=== PATIENT | male | born 1965 | race Caucasian/White ===

== ENCOUNTER 2020-07-05 23:14 | Emergency (ER) | payer OTHER ==
[2020-07-05] MEDS ORDERED: HYDROmorphone 2 MG/ML VIAL (DILAUDID) IV ONE (23:45)
[2020-07-05] MEDS ORDERED: ONDANSETRON 4 MG/2 ML (SDV) Z0FRAN IVP ONE (23:45)
[2020-07-06 00:24] LABS: HEMATOCRIT 49 % (40-54); HEMOGLOBIN 16.8 G/DL (13.3-17.7); LYMPHOCYTES % (AUTO) 12 % (12-44); MEAN CORPUSCULAR HEMOGLOBIN 29 PG (25-34); MEAN CORPUSCULAR HGB CONC 34 G/DL (32-36); MEAN CORPUSCULAR VOLUME 87 FL (80-99); MEAN PLATELET VOLUME 9.2 FL (7.4-10.4); NEUTROPHILS % (AUTO) 72 % (42-75); PLATELET COUNT 340 10^3/uL (130-400); WHITE BLOOD COUNT 16.7 10^3/uL (4.3-11.0)
[2020-07-06 00:25] LABS: BASOPHILS # (AUTO) 0.1 10^3/uL (0.0-0.1); BASOPHILS % (AUTO) 1 % (0-10); EOSINOPHILS # (AUTO) 1.5 10^3/uL (0.0-0.3); EOSINOPHILS % (AUTO) 9 % (0-10); MONOCYTES # (AUTO) 0.9 X 10^3 (0.0-1.0); MONOCYTES % (AUTO) 5 % (0-12); NEUTROPHILS # (AUTO) 12.1 X 10^3 (1.8-7.8)
[2020-07-06 00:27] LABS: NEUTROPHILS % (MANUAL) 72 %
[2020-07-06 00:28] LABS: EOSINOPHILS % (MANUAL) 9 %; LYMPHOCYTES % (MANUAL) 11 %; MONOCYTES % (MANUAL) 8 %; PLATELET ESTIMATE ADEQUATE; RBC MORPH NORMAL
[2020-07-06 00:29] LABS: TOXIC GRANULATION/VACUOLAZATIO 1+
[2020-07-06 00:31] LABS: CARBON DIOXIDE 27 MMOL/L (21-32); CHLORIDE 100 MMOL/L (98-107); POTASSIUM 4.3 MMOL/L (3.6-5.0); SODIUM 137 MMOL/L (135-145)
[2020-07-06 00:32] LABS: ALANINE AMINOTRANSFERASE 44 U/L (0-55); ALBUMIN 4.4 GM/DL (3.2-4.5); ALKALINE PHOSPHATASE 80 U/L (40-136); BILIRUBIN,TOTAL 0.3 MG/DL (0.1-1.0); BUN/CREATININE RATIO 11; CALCIUM 9.2 MG/DL (8.5-10.1); CREATININE SERUM 1.01 MG/DL (0.60-1.30); GFR ESTIMATED > 60; GLUCOSE 103 MG/DL (70-105); LIPASE 150 U/L (8-78)
[2020-07-06] MEDS ORDERED: NS IV 1000 ML 1,000 ML IV SCH (01:00)
[2020-07-06] MEDS ORDERED: NS 100 ML (IVPB) BAG IV ONE (01:00)
[2020-07-06] MEDS ORDERED: IOHEXOL 350 MG/ML 100 ML (OMNIPAQUE 350) VIAL IV ONE (01:00)
[2020-07-06] MEDS ORDERED: CATHETER FLUSH 10 ML SYR IV PRN (01:00)
[2020-07-06] MEDS ORDERED: HYDROmorphone 2 MG/ML VIAL (DILAUDID) IV ONE (01:00)
[2020-07-06] MEDS ORDERED: HOLD METFORMIN - RECEIVED CONTRAST 20 ML VIAL IV SCH (01:00)
--- NOTE | 2020-07-06 01:01 | ED Abdominal Pain ---
General Chief Complaint: Abdominal/GI Problems Stated Complaint: ABDOMINAL PAQIN Nursing Triage Note: Pt complaining of abd pain that started monday Sepsis Screen: No Definite Risk Source of Information: Patient History of Present Illness Date Seen by Provider: Jul 05, 2020 Time Seen by Provider: 23:52 Timing/Duration: 1-3 Hours ("About 3 hours") Severity/Quality: Severe Location: RLQ, Periumbilical Radiation: No Radiation Activities at Onset: None Modifying Factors: Improves With Palpation (worse w/ palpation RLQ) Associated Symptoms: No Back Pain, No Chest Pain, No Diaphoresis, No Fever/Chills; Other (nausea w/o vomiting) Allergies and Home Medications Allergies Coded Allergies: ciprofloxacin (Verified Allergy, Unknown, 07/05/20) Patient Home Medication List Home Medication List Reviewed: Yes Review of Systems Review of Systems Constitutional: see HPI; No chills, No diaphoresis, No fever EENTM: No Symptoms Reported Respiratory: No Symptoms Reported Cardiovascular: No Symptoms Reported Gastrointestinal: See HPI, Abdominal Pain; Denies Constipated, Denies Difficulty Swallowing; Nausea; Denies Vomiting Genitourinary: No Symptoms Reported Musculoskeletal: no symptoms reported Skin: see HPI Psychiatric/Neurological: Other (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; dressing on abdominal wall changed frequently by pt) Hematologic/Lymphatic: No Symptoms Reported All Other Systems Reviewed Negative Unless Noted: Yes Past Uddqame-Bndugf-Djuxqm Hx Patient Social History Alcohol Use: Denies Use Recent Infectious Disease Expo: No Recent Hopitalizations: No Past Medical History Surgeries: Yes Abdominal (colectomy due to ulcerative colitis; years ago in [facility]; followed since at [facility], there last week for CT), Appendectomy Respiratory: No Cardiac: No Neurological: No Genitourinary: No Gastrointestinal: No Musculoskeletal: No Endocrine: No HEENT: No Cancer: No Psychosocial: No Integumentary: No Physical Exam Vital Signs Vital Signs - First Documented 07/05/20 23:25 Temp 36.5 Pulse 72 Resp 18 B/P (MAP) 193/109 (137) Pulse Ox 99 O2 Delivery Room Air Capillary Refill : Less Than 3 Seconds Height/Weight/BMI Height: '" Weight: lbs. oz. kg; BMI Method: General Appearance: WD/WN, moderate distress HEENT: normal ENT inspection Neck: supple Respiratory: lungs clear, normal breath sounds Cardiovascular: normal peripheral pulses, regular rate, rhythm Gastrointestinal: other (tender RLQ near fistula bandage; diminished BS; nondistended) Extremities: non-tender, normal inspection Neurologic/Psychiatric: alert, oriented x 3 Skin: normal color, warm/dry; No jaundice, No pallor Progress/Results/Core Measures Results/Orders Lab Results Laboratory Tests Test 07/05/20 23:30 07/06/20 01:26 Range/Units White Blood Count 16.7 H 4.3-11.0 10^3/uL Red Blood Count 5.70 4.35-5.85 10^6/uL Hemoglobin 16.8 13.3-17.7 G/DL Hematocrit 49 40-54 % Mean Corpuscular Volume 87 80-99 FL Mean Corpuscular Hemoglobin 29 25-34 PG Mean Corpuscular Hemoglobin Concent 34 32-36 G/DL Red Cell Distribution Width 13.3 10.0-14.5 % Platelet Count 340 130-400 10^3/uL Mean Platelet Volume 9.2 7.4-10.4 FL Immature Granulocyte % (Auto) 1 % Neutrophils (%) (Auto) 72 42-75 % Lymphocytes (%) (Auto) 12 12-44 % Monocytes (%) (Auto) 5 0-12 % Eosinophils (%) (Auto) 9 0-10 % Basophils (%) (Auto) 1 0-10 % Neutrophils # (Auto) 12.1 H 1.8-7.8 X 10^3 Lymphocytes # (Auto) 2.0 1.0-4.0 X 10^3 Monocytes # (Auto) 0.9 0.0-1.0 X 10^3 Eosinophils # (Auto) 1.5 H 0.0-0.3 10^3/uL Basophils # (Auto) 0.1 0.0-0.1 10^3/uL Immature Granulocyte # (Auto) 0.1 0.0-0.1 10^3/uL Neutrophils % (Manual) 72 % Lymphocytes % (Manual) 11 % Monocytes % (Manual) 8 % Eosinophils % (Manual) 9 % Toxic Granulation 1+ Platelet Estimate ADEQUATE Blood Morphology Comment NORMAL Sodium Level 137 135-145 MMOL/L Potassium Level 4.3 3.6-5.0 MMOL/L Chloride Level 100 98-107 MMOL/L Carbon Dioxide Level 27 21-32 MMOL/L Anion Gap 10 5-14 MMOL/L Blood Urea Nitrogen 11 7-18 MG/DL Creatinine 1.01 0.60-1.30 MG/DL Estimat Glomerular Filtration Rate > 60 BUN/Creatinine Ratio 11 Glucose Level 103 70-105 MG/DL Calcium Level 9.2 8.5-10.1 MG/DL Corrected Calcium 8.9 8.5-10.1 MG/DL Total Bilirubin 0.3 0.1-1.0 MG/DL Aspartate Amino Transf (AST/SGOT) 27 5-34 U/L Alanine Aminotransferase (ALT/SGPT) 44 0-55 U/L Alkaline Phosphatase 80 40-136 U/L Total Protein 7.0 6.4-8.2 GM/DL Albumin 4.4 3.2-4.5 GM/DL Lipase 150 H 8-78 U/L Urine Color YELLOW Urine Clarity CLEAR Urine pH 5.0 5-9 Urine Specific [place] 1.020 1.016-1.022 Urine Protein NEGATIVE NEGATIVE Urine Glucose (UA) NEGATIVE NEGATIVE Urine Ketones TRACE H NEGATIVE Urine Nitrite NEGATIVE NEGATIVE Urine Bilirubin NEGATIVE NEGATIVE Urine Urobilinogen 0.2 < = 1.0 MG/DL Urine Leukocyte Esterase NEGATIVE NEGATIVE Urine RBC (Auto) NEGATIVE NEGATIVE Urine RBC /HPF Urine WBC /HPF Urine Crystals /LPF Urine Bacteria /HPF Urine Casts /LPF Urine Mucus /LPF Urine Culture Indicated NO My Orders Orders - JUDITH MOSS MD Comprehensive Metabolic Panel (07/05/20 23:40) Lipase (07/05/20 23:40) Ua Culture If Indicated (07/05/20 23:40) Ed Iv/Invasive Line Start (07/05/20 23:40) Acute Abd Series (07/05/20 23:40) Cbc With Automated Diff (07/05/20 23:40) Hydromorphone Injection (Dilaudid Inject (07/05/20 23:45) Ondansetron Injection (Zofran Injectio (07/05/20 23:45) Manual Differential (07/05/20 23:30) Hydromorphone Injection (Dilaudid Inject (07/06/20 01:00) Ns Iv 1000 Ml (Sodium Chloride 0.9%) (07/06/20 01:00) Ct Abdomen/Pelvis W (07/06/20 00:54) Iohexol Injection (Omnipaque 350 Mg/Ml 1 (07/06/20 01:00) Received Contrast (Hold Metformin- Contr (07/06/20 01:00) Sodium Chloride Flush (Catheter Flush Sy (07/06/20 01:00) Ns (Ivpb) (Sodium Chloride 0.9% Ivpb Bag (07/06/20 01:00) Ng Tube Insert & Assessment (07/06/20 03:06) Ng Tube To Low Wall Suction (07/06/20 03:06) Ns Iv 1000 Ml (Sodium Chloride 0.9%) (07/06/20 03:45) Hydromorphone Injection (Dilaudid Inject (07/06/20 03:45) Chest 1 View Ap/Pa Only (07/06/20 05:14) Medications Given in ED Current Medications Medications Dose Ordered Sig/Phuc Route Start Time Stop Time Status Last Admin Dose Admin Hydromorphone HCl 0.5 mg ONCE ONCE IV 07/05/20 23:45 07/05/20 23:46 DC 07/05/20 23:51 0.5 MG Hydromorphone HCl 0.5 mg ONCE ONCE IV 07/06/20 01:00 07/06/20 01:01 DC 07/06/20 01:02 0.5 MG Hydromorphone HCl 0.5 mg Q2HR PRN IV 07/06/20 03:45 07/06/20 04:11 0.5 MG Iohexol 100 ml ONCE ONCE IV 07/06/20 01:00 07/06/20 01:01 DC 07/06/20 01:10 100 ML Ondansetron HCl 4 mg ONCE ONCE IVP 07/05/20 23:45 07/05/20 23:46 DC 07/05/20 23:51 4 MG Sodium Chloride 10 ml NEEDED PRN IV 07/06/20 01:00 07/06/20 01:11 10 ML Sodium Chloride 100 ml ONCE ONCE IV 07/06/20 01:00 07/06/20 01:01 DC 07/06/20 01:11 100 ML Sodium Chloride 1,000 ml @ 150 mls/hr Q6H40M ONCE IV 07/06/20 03:45 07/06/20 10:24 07/06/20 04:10 150 MLS/HR Vital Signs/I&O 07/05/20 07/06/20 23:25 05:50 Temp 36.5 Pulse 72 61 Resp 18 16 B/P (MAP) 193/109 (137) 117/66 Pulse Ox 99 93 O2 Delivery Room Air Room Air Blood Pressure Mean: 137 Progress Progress Note : Time: 00:50 Progress Note Reviewed labs and AAS results (nonspecific w/ no sign of SBO) with patient; he reports increased pain now after transient improvement from IV Dilaudid; agrees to have CT w/ IV contrast, declines oral contrast. 02:00 review of imaging and CT results suggest closed loop bowel obstruction and localized inflammatory changes in abdominal wall; discussed w/ patient and recommend NG suction, NPO, IV fluids, pain control, and transfer back to for surgical evaluation. He consents to transfer but declines NG and strongly prefers POV transfer by to drive. I called to arrange and they are contacting staff and promised to return my call w/ further instructions. 03:30 called back to accept patient transfer on behalf of Dr Carias; end user consultant emphasized need for NG (as initally recommended by me) and patient now consents. He had requested POV until the NG tube decision and then consents to EMS transfer to allow for application of suction and IV fluids and pain medicine Consults : Consulting Physician: A Departure Impression Primary Impression: Abdominal pain Additional Impressions: Small bowel obstruction due to adhesions Enterocutaneous fistula Disposition: XFER SHT-TRM HOSP Condition: Stable Transfer Transfer Reason: Exceeds level of care Transfer Facility: [facility] Method of Transfer: EMS Departure-Patient Inst. Referrals: FLOR JOHN (PCP/Family) Primary Care Physician JUDITH MOSS MD Jul 06, 2020 01:01
[2020-07-06 01:55] LABS: CLARITY,URINE CLEAR; COLOR,URINE YELLOW
[2020-07-06 01:56] LABS: BILIRUBIN,URINE NEGATIVE (NEGATIVE); GLUCOSE, URINE (UA) NEGATIVE (NEGATIVE); KETONES,URINE TRACE (NEGATIVE); LEUKOCYTE ESTERASE ,URINE NEGATIVE (NEGATIVE); NITRITE,URINE NEGATIVE (NEGATIVE); PROTEIN,URINE NEGATIVE (NEGATIVE)
[2020-07-06] MEDS ORDERED: NS IV 1000 ML 1,000 ML IV ONE (03:45)
[2020-07-06] MEDS: HYDROmorphone 2 MG/ML VIAL (DILAUDID) IV PRN ×2 (04:11→06:24)
[2020-07-06 05:50] VITALS: BP 117/66
--- NOTE | 2020-07-06 07:17 | Diagnostic Imaging Report ---
PROCEDURE: CT abdomen and pelvis with contrast. TECHNIQUE: Multiple contiguous axial images were obtained through the abdomen and pelvis after administration of intravenous contrast. Auto Exposure Controls were utilized during the CT exam to meet ALARA standards for radiation dose reduction. All CT scans use one or more of the following dose optimizing techniques: automated exposure control, MA and/or KvP adjustment based on patient size and exam type or iterative reconstruction. INDICATION: Worsening pain nonspecific throughout the abdomen. EXAMINATION: CT of the abdomen and pelvis with contrast from 07/06/2020 FINDINGS: There are post colectomy changes with suture line in the right anterior lower abdomen. In this region diffuse bowel dilatation is noted with adjacent fat stranding. There are likely adhesions within the right lower quadrant anteriorly. Much of the abnormality is near the previous ostomy site in the right lower quadrant. At least one markedly dilated loop of bowel is seen at least 5 cm in thickness. A closed loop obstruction in the region is possible. The remaining loops of bowel demonstrate mild wall thickening likely reactive. There is no significant free fluid. No free air. No abscess appreciated. There is fatty infiltration throughout the liver. The gallbladder and spleen normal. The adrenal glands and pancreas unremarkable. The kidneys unremarkable. The visualized lungs appear clear. No acute osseous abnormality. IMPRESSION: 1. Abnormal appearance of the loops of bowel in the right anterior mid to lower abdomen likely a focal obstructive process, possibly a closed loop obstruction. Much of this appears to be centered along the postoperative change and prior ostomy site. Otherwise incidental findings as above. Pertinent findings agree with the preliminary report. Dictated by: Dictated on workstation # [id number]
--- NOTE | 2020-07-06 07:41 | Diagnostic Imaging Report ---
INDICATION: NG tube placement. EXAMINATION: Chest 07/06/2020. Comparison same date at an earlier time. FINDINGS: There has been interval placement of a feeding tube with the tip looped in the left upper quadrant. Remaining chest is stable. IMPRESSION: 1. Feeding tube as above. Dictated by: Dictated on workstation # [id number]
--- NOTE | 2020-07-06 07:59 | Diagnostic Imaging Report ---
INDICATION: Abdominal pain. History of colectomy. FINDINGS: Portable chest shows lungs to be clear. There is no free air under the diaphragm. Upright and supine abdomen show multiple dilated loops of fluid-filled small bowel with a few air-fluid levels demonstrated. There is very little gas or stool within the colon. There is no organomegaly. No pathologic calcification. IMPRESSION: Dilated bowel loops predominantly small bowel in nature does raise concern of partial small bowel obstruction. Dictated by: Dictated on workstation # [id number]
== END 2020-07-06 07:50 | disposition short-term general hospital (02) ==
LOC: ER FS 23:22
DX: R10.31 Right lower quadrant pain (principal); K56.609 Unspecified intestinal obstruction, unspecified as to partial versus complete obstruction; K63.2 Fistula of intestine; Z88.1 Allergy status to other antibiotic agents
CPT/HCPCS: 36415; 71045; 74022; 74177; 80053; 81000; 83690; 85007; 85027

== ENCOUNTER → 2021-06-03 | Outpatient (CLI) | payer OTHER | LOC: ORTHO 14:00 | PROVIDERS: ATTEND Orthopaedic Surgery | DX: M25.512 Pain in left shoulder (principal); M25.511 Pain in right shoulder ==

== ENCOUNTER 2021-09-09 05:36 | Outpatient (CLI) | payer OTHER ==
[~2021-09-09] VITALS: Ht 162.6 cm; Wt 74.8 kg
[2021-09-09] MEDS ORDERED: LOPE2CAP PO (09:51)
[2021-09-09] MEDS ORDERED: LACT1CAP62 PO (09:51)
== END 2021-09-09 10:32 ==
LOC: PREOP 05:36
PROVIDERS: ATTEND Surgery
DX: Z01.818 Encounter for other preprocedural examination (principal)

== ENCOUNTER 2021-09-20 08:02 | Day surgery (SDC) | payer OTHER ==
[~2021-09-20] VITALS: Ht 163 cm; Wt 74.8 kg
[~2021-09-20 08:02] MED LIST: LACT1CAP62 PO; LOPE2CAP PO
[2021-09-20] MEDS ORDERED: LACTATED RINGERS 1,000 ML IV ONE (08:12)
[2021-09-20 08:15] VITALS: BP 136/95
[2021-09-20] MEDS ORDERED: LACTATED RINGERS 1,000 ML IV STA (08:16)
[2021-09-20] MEDS ORDERED: MIDAZOLAM 2 MG/2 ML (VERSED) VIAL ONE (08:43)
[2021-09-20] MEDS ORDERED: PROPOFOL INJECTION 50 ML IV ONE (08:43)
[2021-09-20 09:00] VITALS: BP 102/59
[2021-09-20 09:05] VITALS: BP 98/59
--- NOTE | 2021-09-20 09:09 | Progress Note-Post Operative ---
Post-Operative Progess Note Surgeon (s)/Internet Designer (s) Surgeon WANDA CLARK DO Internet Designer: none Pre-Operative Diagnosis UC, rectal bleed Post-Operative Diagnosis Ulcers Pouch inflammation Procedure & Operative Findings Date of Procedure 09/20/21 Procedure Performed/Findings Proctoscopy with hot bx Anesthesia Type IV sedation by AUTOMATIC CLIPPER AND STRIPPER Estimated Blood Loss Estimated blood loss (mL): scant Specimens/Packing Specimens Removed pouch bx WANDA CLARK DO Sep 20, 2021 09:09
[2021-09-20 09:10] VITALS: BP 99/57
[2021-09-20 09:30] VITALS: BP 108/65
[2021-09-20 09:39] VITALS: BP 136/95
--- NOTE | 2021-09-20 09:43 | Endoscopy Discharge Instruct ---
Endo Procedure/Findings Findings 1.: Stricture 2.: Other Findings (Ulcers/Proctitis) Discharge Instructions - Activity: You might feel a little sleepy until tomorrow. This is due to the medicine you received to relax you. Until tomorrow, you should: NOT drive a car, operate machinery or power tools. NOT drink any alcoholic beverages. NOT make any important decisions or sign importortant papers. Do not return to work until tomorrow, unless otherwise instructed. Resume previous activities tomorrow. Diet: Start by taking liquids. If you tolerate liquids, advance to solid food. 1.: Colonoscopy in 1 year Notify Physician - If you experience excessive bleeding, unusual abdominal pain, fever, or chest pain, contact your doctor immediately. WANDA CLARK DO Sep 20, 2021 09:43
--- NOTE | 2021-09-20 10:48 | Anesthesia-General Post-Op ---
MAC Patient Condition Mental Status/LOC: Same as Preop Cardiovascular: Satisfactory Nausea/Vomiting: Absent Respiratory: Satisfactory Pain: Controlled Complications: Absent Post Op Complications Complications None Follow Up Care/Instructions Patient Instructions None needed. Anesthesiology Discharge Order Discharge Order Patient is doing well, no complaints, stable vital signs, no apparent adverse anesthesia problems. No complications reported per nursing. ALLAN VALENCIA CRNA Sep 20, 2021 10:48
--- NOTE | 2021-09-21 01:52 | OPERATIVE REPORT ---
DATE OF SERVICE: PREOPERATIVE DIAGNOSES: Rectal bleed, history of ulcerative colitis. POSTOPERATIVE DIAGNOSES: Rectal bleed, history of ulcerative colitis, ulcerations and stricture. SURGEON: Efrain Mustafa DO SUPERVISOR PUBLIC MESSAGE SERVICE: None. ANESTHESIA: IV sedation by the JUDO INSTRUCTOR. SPECIMEN: Biopsies from the pouch. BLOOD LOSS: Scant. FLUIDS: Per anesthesia. POSTOPERATIVE CONDITION: Stable. INDICATION FOR PROCEDURE: The patient is a 56-year-old male who has a history of ulcerative colitis, has had a subtotal colectomy with ileal pouch creation. He has had a recent episode of pouchitis and needed to get established with GI. He states he usually takes some antibiotics for the pouchitis and when I saw him this morning, he stated he was doing much better, not really have any problems and had not seen any bleeding. FINDINGS: The patient had 2 or 3 areas of ulceration, could see the one limb of the J-pouch and went to the end of it. There maybe a small ulceration at the end of this. The other limb had a stricture and some ulcerations near it, able to get up little bit past the stricture with the colonoscope and then could not push further and saw what looked to be another stricture just a little bit further up, multiple ulcerations in the pouch. Hot biopsies were performed to try and control bleeding. Otherwise, the pouch was not really that inflamed, saw some hemorrhoids as we slowly pulled out, did not retroflex the scope. We will send these biopsies to pathology. The patient tolerated the procedure and was recovered in the endoscopy suite. Job ID: [id number] DocumentID: [id number] Dictated Date: 09/20/2021 19:32:10 Traffic Division Commanding Officer Date: 09/21/2021 01:51:35 Dictated By: EFRAIN MUSTAFA DO MTDD
== END 2021-09-20 09:53 | disposition home or self-care (01) ==
LOC: SDC 08:02 → ENDO 09:53
PROVIDERS: ATTEND Surgery
DX: K91.850 Pouchitis (principal); K62.5 Hemorrhage of anus and rectum; K51.90 Ulcerative colitis, unspecified, without complications; Z90.49 Acquired absence of other specified parts of digestive tract; Z87.891 Personal history of nicotine dependence; Z79.899 Other long term (current) drug therapy

== ENCOUNTER → 2022-04-20 | Outpatient (CLI) | payer OTHER ==
--- NOTE | 2022-04-20 15:01 | Diagnostic Imaging Report ---
MRI LT LOWER EXT JOINT W/O TECHNIQUE: Multiplanar, multisequence MR imaging of the left knee was performed without contrast. COMPARISON: None available. INDICATION: Left knee pain FINDINGS: MENISCI Medial meniscus: Free edge fraying in the posterior horn of the medial meniscus. Lateral meniscus: Normal. LIGAMENTS ACL: Prior ACL reconstruction with intact graft. There is no resultant impingement. PCL: Intact. MCL: Intact. LCL: The lateral collateral ligamentous complex is intact. EXTENSOR MECHANISM The extensor mechanism is intact. CARTILAGE Medial compartment: There is a 9 x 5 mm area of full-thickness articular cartilage loss with underlying subchondral bone marrow edema in the posterior weightbearing aspect medial femoral condyle. Lateral compartment: The lateral compartment articular cartilage is preserved without high-grade chondromalacia. Patellofemoral compartment: The patellofemoral articular cartilage is well preserved without high-grade chondromalacia. BONE No fracture, stress fracture or osteonecrosis. SOFT TISSUE No knee effusion or Gomez's cyst. No features of arthrofibrosis. IMPRESSION: 1. ACL reconstruction has intact graft. 2. Free edge fraying/tear in the posterior horn of the medial meniscus. 3. A small region of full-thickness articular cartilage loss is present in the posterior aspect the medial femoral condyle adjacent to the meniscal tear. Remainder of the articular cartilage is preserved. Dictated by: Dictated on workstation # [id number]
== END ==
LOC: RAD 09:40
PROVIDERS: ATTEND Nurse Practitioner
DX: S83.242A Other tear of medial meniscus, current injury, left knee, initial encounter (principal); X58.XXXA Exposure to other specified factors, initial encounter
CPT/HCPCS: 73721